=== PATIENT | male | born 1945 | race Caucasian/White ===

== ENCOUNTER 2018-12-19 18:22 | Inpatient (IN) | payer OTHER ==
[~2018-12-19] VITALS: Ht 180.3 cm; Wt 115.8 kg
--- NOTE | 2018-12-19 18:37 | NUR ---
ED PHYSICIAN AT BEDSIDE FOR PATIENT EVALUATION. MEDICAL SCREENING EXAMINATION COMPLETED BY ED PHYSICIAN DR. SANTAMARIA.
--- NOTE | 2018-12-19 18:44 | NUR ---
1ST LITER OF NS INITIATED. HR=97 SP02=94% ON RA, RR=16 DJ=497/57
[2018-12-19 19:11] LABS: CALCIUM 8.1 mg/dL (8.5-10.1); CARBON DIOXIDE 21.8 mmol/L (21-32); CHLORIDE SERUM 111 mmol/L (98-107); CREATININE SERUM 1.2 mg/dL (0.7-1.3); GLUCOSE SERUM 124 mg/dL (74-106); POTASSIUM SERUM 3.3 mmol/L (3.5-5.1); SODIUM SERUM 145 mmol/L (136-145)
[2018-12-19 19:17] LABS: ALBUMIN 3.4 g/dL (3.4-5.0); ALKALINE PHOSPHATASE 108 U/L (46-116); ALT/SGPT 30 U/L (16-63); AST/SGOT 36 U/L (15-37); BILIRUBIN TOTAL 1.4 mg/dL (0.20-1.00); TOTAL PROTEIN, SERUM 6.8 g/dL (6.4-8.2)
--- NOTE | 2018-12-19 19:19 | NUR ---
PT MEDICATED PER MD ORDER. PT VERBALIZED UNDERSTANDING OF MEDICATION PRIOR TO MEDICATION ADMINISTRATION. PT SISTER AT BEDSIDE, SPEAKING TO DOCTOR ROSALIO. PT IS AAOX4, ANSWERING ALL QUESTIONS APPROPRIATELY, REPORTING THAT HE JUST DOESN'T REMEMBER HOW HE GOT TO THE HOSPITAL OR RECALL THE SYNCOPAL EPISODE. PT IS AWAKE, SITTING UP IN GURNEY, RESP E/U, NAD NOTED. CALL LIGHT IN REACH.
[2018-12-19 19:21] LABS: BASOPHIL % 0.1 % (0-2); PLATELET COUNT 198 x10^3mcL (130-400); RED CELL DISTRIBUTION WIDTH 14.4 % (11.5-14.5)
--- NOTE | 2018-12-19 19:23 | NUR ---
DR. SANTAMARIA SPOKE WITH PT AND FAMILY ABOUT PLAN OF CARE FOR ADMISSION. PT AND FAMILY AGREED. SISTER, JEANNIE, LEFT HER PHONE NUMBER, .
--- NOTE | 2018-12-19 20:03 | NUR ---
PT MEDICATED PER MD ORDER. PT VERBALIZED UNDERSTANDING OF THE MEDICATION PRIOR TO MEDICATION ADMINISTRATION.
--- NOTE | 2018-12-19 20:36 | NUR ---
PT VOMITTED IN TOWEL. WHEN ASKED IF HE FELT NAUSEOUS, HE STATED "NO I FEEL GREAT NOW". PT SITTING IN GURNEY, AWAKE, ALERT, SPEAKING IN CLEAR SENTENCES, WATCHING TV. MADE AWARE.
--- NOTE | 2018-12-19 21:09 | NUR ---
PT MEDICATED PER MD ORDER. PT VERBALIZED UNDERSTANDING OF MEDICATIONS PRIOR TO MEDICATION ADMINISTRATION. PT AWAKE, ALERT, LAYING IN GURNEY WATCHING TV WITH CALL LIGHT IN REACH.
[2018-12-19] MEDS ORDERED: PROPRANOLOL HYD80 MG PO (21:27)
[2018-12-19] MEDS ORDERED: INDERAL LA80 MG PO ×2 (21:27→21:28)
--- NOTE | 2018-12-19 21:52 | NUR ---
PT'S SISTER JEANNIE CALLED ASKING FOR UPDATE. INFORMED JEANNIE THAT MD WAS PLANNING ON ADMITTING PT. REPORTS THAT SHE WILL CALL BACK IN THE MORNING.
--- NOTE | 2018-12-19 22:26 | NUR ---
BP IS 96/45, MAP 62. DR. SANTAMARIA AT BEDSIDE TO REEVALUATE PT. PT AWAITING CT SCAN.
--- NOTE | 2018-12-19 22:47 | NUR ---
PT RETURNED FROM CT, AWAKE, ALERT, RESP E/U, NAD NOTED. BOLUS NS RUNNING THROUGH LEFT HAND IV. CALL LIGHT IN REACH.
--- NOTE | 2018-12-19 23:19 | NUR ---
PER DOCTOR ROSALIO, PT'S VITALS ARE STABLE AND IS READY TO BE TRANSPORTED TO TELE.
--- NOTE | 2018-12-19 23:32 | NUR ---
REPORT GIVEN TO PREMA VALDIVIA.
[2018-12-19 23:51] LABS: UA SPECIFIC GRAVITY 1.015 (1.005-1.035); microscopic required? YES; urine erythrocyte NEGATIVE (NEGATIVE)
--- NOTE | 2018-12-19 23:51 | NUR ---
PT ADMITTED TO TELE FLOOR. PT ACCOMPANIED BY RN ANUPAMA AND EMT RAH. PT IS AWAKE, AAOX4, RESP E/U, NAD NOTED.
--- NOTE | 2018-12-19 23:52 | NUR ---
RECEIVED PT VIA Five [facility]ERNEY FROM E/D, ACCOMPANIED BY RN AND TRANSPORTER. PT A/A/O X 4, CALM, COOPERATIVE; NOTED SLIGHT SLUGGISHNESS TO RESPONSE W/ QUESTIONS. AMBULATORY, W/ NORMAL GAIT AND BALANCE; PT HAD SYNCOPAL EPISODE FRAMING MANAGER, THUS ON FALL RISK PRECAUTIONS. ON TELE # 16, HR 85, NSR, DENIES CHEST PAIN OR DISCOMFORT AT THIS TIME. LUNGS CTAB, CHEST RISING EVENLY, 2LNC, 94%, NO ACUTE RESPIRATORY DISTRESS NOTED. ABD SOFT, ROUND, NON-TENDER, NORMOACTIVE BOWEL SOUNDS X 4 QUADS, LAST BM 12/19/18, FORMED; HAD EPISODE OF VOMITING X 1 @ E/D. IV SITE LH 20G, CDI. ORIENTED PT TO ROOM, BED CONTROLS, CALL LIGHT SYSTEM. SIDE RAILS UP X 2, BED IN LOW POSITION. WILL ENDORSE TO PREMA SULLIVAN.
[2018-12-20 00:17] VITALS: BP 110/51
--- NOTE | 2018-12-20 01:05 | NUR ---
RECIEVED PT FROM YOLY LLOYD. PT RESTING IN BED COMFORTABLY AT THIS TIME. DENIES PAIN OR DISCOMFORT. BREATHING E/U ON 2L NC. VSS AT THIS TIME. PT REQUESTING SLEEP AID, INFORMED . BED AT LOWEST POSITION. CALL LIGHT WITHIN REACH. WILL CONTINUE TO MONITOR.
--- NOTE | 2018-12-20 05:55 | NUR ---
PT RESTING IN BED AT THIS TIME. EKG AT BEDSIDE. DENIES PAIN OR DISCOMFORT. BREATHING E/U ON 2L NC. DENIES SOB. NO SIGNS OF ACUTE DISTRESS NOTED. NO ACUTE EVENTS THIS SHIFT. BED AT LOWEST POSITION. CALL LIGHT WITHIN REACH. WILL ENDORSE TO DAY NURSE.
[2018-12-20 06:33] LABS: CALCIUM 7.5 mg/dL (8.5-10.1); CARBON DIOXIDE 21.1 mmol/L (21-32); CHLORIDE SERUM 112 mmol/L (98-107); CREATININE SERUM 1.6 mg/dL (0.7-1.3); GLUCOSE SERUM 97 mg/dL (74-106); MAGNESIUM 1.6 mg/dL (1.8-2.4); PHOSPHOROUS 3.4 mg/dL (2.5-4.9); POTASSIUM SERUM 3.8 mmol/L (3.5-5.1); SODIUM SERUM 146 mmol/L (136-145)
--- NOTE | 2018-12-20 07:27 | NUR ---
RECEIVED HAND OFF REPORT FROM NIGHT NURSE. PATIENT FOUND SITTING UP IN BED, SEIZURE PRECAUTIONS IN PLACE DUE TO SYNCOPE BEFORE ADMITTING. PATIENT A/0 X4, 2L O2 VIA NC. IV TO LEFT HAND INFUSING WELL, TELE MONITOR #[address] ON PATIENT. PATIENT HAD NO COMPLAINTS OF PAIN, AMBULATED TO RESTROOM WITHOUT ASSISTNACE, GAIT STEADY. US TECH NOW AT BEDSIDE FOR US OF NECK. ORIENTED TO CALL LIGHT SYSTEM AND INSTRUCTED TO CALL IF NEEDING ASSISTANCE
[2018-12-20 07:47] LABS: PLATELET COUNT 169 x10^3mcL (130-400)
[2018-12-20 07:49] LABS: RED CELL DISTRIBUTION WIDTH 14.7 % (11.5-14.5)
--- NOTE | 2018-12-20 08:01 | NUR ---
RECEIVED CRITICAL VALUE OF WBC 20.[address] CHILDS, NO NEW ORDERS AT THIS TIME.
[2018-12-20 08:57] VITALS: BP 99/44
--- NOTE | 2018-12-20 09:10 | NUR ---
DR LUI AND TEAM ROUNDED ON PATIENT, UPDATED PATIENT ON PLAN OF CARE. INFORMED PATIENT OF DIAGNOSIS OF NSTEMI AND NEED FOR CONSULTATIONS FROM DR ELIZONDO AND DR SAUNDERS BEFORE CONTINUING. PATIENT MEDICATIONS HELD FOR NPO, PATIENT REFUSED COLACE. CALL LIGHT WITHIN REACH
--- NOTE | 2018-12-20 10:38 | NUR ---
RECEIVED CALL FROM [facility]. PATIENT BLOOD CLUTURE TESTED POSITIVE FOR GRAM NEGATIVE BACILLI.
--- NOTE | 2018-12-20 10:55 | NUR ---
DR SAUNDERS CALLED ASKING ABOUT PATIENT. STATING THAT PATIENT SHOULD BE AT A FACILITY WITH HIGHER LEVEL OF CARE DUE TO ACUTE MA AND APPENDICITIS, PATIENT SHOULD BE IN ICU AT THE LEAST. WILL COME IN AND MAKE A NOTE ON THIS RECOMMENDATION. CALLED DR CHILDS AND INFOMRED HIM OF WHAT DR SAUNDERS SAID. DR ELIZONDO HAS NOT SEENT HIS PATIENT YET.
--- NOTE | 2018-12-20 11:33 | NUR ---
PATIENT STARTED ON HEPARIN IV INFUSION PER ORDER. DOSES VERIFIED BY EZEKIEL LLOYD AND KRIS RN. PATIENT EDUCATED ABOUT HEPARIN A BLOOD THINNER, US GALLBLADDER ORDERED, PATIENT HAS BEEN NPO SINCE LAST NIGHT. TECH COMING TO DO EXAM
[2018-12-20 11:57] VITALS: BP 114/53
--- NOTE | 2018-12-20 12:33 | NUR ---
IV IN LEFT HAND BEING USED BY HEPARIN DRIP. ATTEMPTING TO START SECOND IV LINE IN RIGHT ARM.
--- NOTE | 2018-12-20 13:27 | NUR ---
DR ELIZONDO SEEING PATIENT AT THIS TIME
[2018-12-20 13:28] LABS: BAND NEUTROPHIL 25 % (0-10); MONOCYTE 5 % (0-7); SEGMENTED NEUTROPHILS 64 % (37-75); rbc morphology (normal/abnorm) NORMAL (NORMAL)
[2018-12-20 13:29] LABS: PLATELET MORPHOLOGY PLATELETS NORMAL
--- NOTE | 2018-12-20 14:36 | NUR ---
DR SAUNDERS AT BEDSIDE WITH DR CHILDS. UPDATED PATIENT ON CONDITION, ASNSWERED QUESTIONS FROM PATIENT, AND GAVE RECOMMENDATIONS. DR SAUNDERS STATED THAT PATIENT SHOULD BE IN HOSPITAL WITH HIGHER LEVEL OF CARE FOR MEAT SOAKER. PATIENT REFUSING RECOMMENDATIONS AND CHOOSING TO STAY IN CURRENT HOSPTIAL TO TREAT APPENDICITIS. DR SAUNDERS ALSO RECOMENDED TRANSFER PATIENT TO ICU TO CONTINUE MONITORING. DR CHILDS AWARE OF RECCOMENDATIONS AND PATIENT REFUSAL TO BE TRANSFERED TO HIGHER LEVEL OF CARE
--- NOTE | 2018-12-20 16:04 | NUR ---
ACLLED REPORT TO TALAT LLOYD IN ICU. PATIENT TO BE TRANSFERRED TO BED 1 IN ICU. PHARMACY CALLED TO CONFIRM PATIENT WEIGHT FOR VANCOMYCIN DOSING
--- NOTE | 2018-12-20 16:20 | NUR ---
PT RECEIVED TO ICU 1 @ 1615. PT ABLE TO AMBULATE TO NEW BED FROM [facility] BED. VITAL SIGNS STABLE. PT AO X 4. PT ABLE TO COMMUNICATE NEEDS THEY ARISE, STATES ONLY PAIN IS REBOUND TENDERNESS WITH RLQ PALPATION. BED IN LOWEST POSITION, PT EDUCATED ON USE OF CALL LIGHT, URINAL PLACED AT BEDSIDE WITHIN REACH. PT ON 3L NC, O2 SAT 98%, HR 79, BP 134/72 (97), RR 18, SPO2 98%. WILL CONTINUE TO MONITOR PT.
[2018-12-20 16:53] VITALS: BP 134/72
[2018-12-20 19:25] VITALS: BP 114/60
--- NOTE | 2018-12-20 19:25 | NUR ---
RECEIVED REPORT AND PATIENT FROM TALAT LLOYD. SEE NURSING ASSESSMENT FOR FURTHER DETAILS. RECEIVED PT AWAKE/ALERT, ATTACHED TO FULL GAS LOAD DISPATCHER AND CONTINUOUS PULSE OXIMETRY. HOB ELEVATED 45 DEGREES PER PT COMFORT, CALL LIGHT WITHIN REACH, BED AT LOWEST SETTING. NO S/S OF ANY DISTRESS OR SOB. WILL CONT TO MONITOR.
--- NOTE | 2018-12-20 19:26 | NUR ---
RECEIVED LAB RESULT FOR PTT OF 76.8, TITRATED HEPARIN DRIP TO 1100 UNITS/HR. ORDER FOR NEXT PTT AT 2330.
[2018-12-20 23:05] VITALS: BP 121/57
--- NOTE | 2018-12-21 00:58 | NUR ---
LAB CALLED, PTT 56.2 AT THIS TIME. NO CHANGE PER HEPARIN GTT PROTOCOL. WILL ORDER NEXT PTT.
[2018-12-21 03:01] VITALS: BP 146/68
--- NOTE | 2018-12-21 03:15 | NUR ---
PT REPORTING RLQ SHARP PAIN 7/[address] NOGUEIRA MADE AWARE AT THIS TIME. PER DR. NOGUEIRA SHE WILL ORDER PAIN MEDICATION AT THIS TIME. WILL ADMINISTER PER EMAR.
--- NOTE | 2018-12-21 04:25 | NUR ---
DR. VILLARREAL MADE AWARE OF PT'S REPORTED RLQ ABD PAIN 08/27. PER DR. VILLARREAL HE WILL ORDER MEDICATION. WILL ADMINISTER PER EMAR.
[2018-12-21 05:38] LABS: BASOPHIL % 0.2 % (0-2); PLATELET COUNT 152 x10^3mcL (130-400)
[2018-12-21 05:49] LABS: CALCIUM 7.4 mg/dL (8.5-10.1); CARBON DIOXIDE 26.3 mmol/L (21-32); CHLORIDE SERUM 110 mmol/L (98-107); CREATININE SERUM 1.3 mg/dL (0.7-1.3); GLUCOSE SERUM 98 mg/dL (74-106); MAGNESIUM 1.7 mg/dL (1.8-2.4); PHOSPHOROUS 2.3 mg/dL (2.5-4.9); SODIUM SERUM 145 mmol/L (136-145)
[2018-12-21 05:52] LABS: ALBUMIN 2.6 g/dL (3.4-5.0)
--- NOTE | 2018-12-21 06:06 | NUR ---
LAB CALLED, PTT 52. NO CHANGE PER HEPARIN GTT PROTOCOL. WILL ORDER AM LAB FOR TOMORROW.
--- NOTE | 2018-12-21 07:11 | NUR ---
GAVE REPORT TO JOSÉ LUIS LLOYD. UPDATES GIVEN, QUESTIONS ANSWERED. ENDORSED CARE.
--- NOTE | 2018-12-21 07:15 | NUR ---
PATIENT IN BED, BED IS TO THE LOWEST POSITION. PATIENT IS AWAKE AND ALERT AND ABLE TO FOLLOW COMMANDS. STAFF RADIOLOGIST IN PLACE, NSR. PATIENT IS ON 2 L NASAL CANNULA. PATIENT IS BREATHING ADEQUATELY AND THERE ARE NO SIGNS OF RESPIRATORY DISTRESS. PATIENT HAS IV ACCESS NOTED TO BRENNON AND LH. N/S IS INFUSING AT 125 ML/HR AND HEPARIN IS INFUSING AT 1100 U/HR. HEELS ARE OFF LOADED AT THIS TIME WITH PILLOWS, CALL LIGHT IS WITHIN REACH. PATIENT STABLE, WILL CONTINUE TO MONITOR.
--- NOTE | 2018-12-21 07:35 | NUR ---
PATIENT STATES THAT THEY HAVE ABD PAIN, AND WOULD LIKE TO RECEIVE MEDICATION. MEDICATION GIVEN, SEE EMAR. WILL CONTINUE TO MONITOR.
[2018-12-21 07:49] VITALS: Ht 180.3 cm; Wt 115.8 kg
[2018-12-21 08:04] VITALS: BP 136/64
--- NOTE | 2018-12-21 08:35 | NUR ---
PATIENT REASSESSED AT THIS TIME. PATIENT DENIES PAIN. WILL CONTINUE TO MONITOR.
--- NOTE | 2018-12-21 10:30 | NUR ---
PATIENT IN BED RESTING COMFORATBLY, PATIENT STATES NO PAIN AT THIS TIME. WILL CONTINUE TO MONITOR.
[2018-12-21 11:23] VITALS: BP 133/65
--- NOTE | 2018-12-21 13:00 | NUR ---
PATIENT IN BED RESTING COMFORTABLY. PATIENT DENIES PAIN AT THIS TIME. WILL CONTINUE TO MONITOR.
--- NOTE | 2018-12-21 14:38 | NUR ---
HEPARIN DRIP D/C AT THIS TIME PER DR. ELIZONDO ORDERS.
[2018-12-21 15:27] VITALS: BP 142/76
--- NOTE | 2018-12-21 16:20 | NUR ---
PATIENT STATES THAT THEY HAVE ABD PAIN AT THIS TIME, AND WOULD LIKE SOMETHING FOR PAIN. WILL MEDICATE AT THIS TIME.
--- NOTE | 2018-12-21 19:04 | NUR ---
REPORT GIVEN TO PREMA INFANTE. ALL QUESTIONS ANSWERED.
[2018-12-21 19:15] VITALS: BP 145/74
--- NOTE | 2018-12-21 19:15 | NUR ---
RECEIVED PT AOX4 ABLE TO RESPOND TO COMMANDS AND MAKE NEEDS KNOWN. GCS=15. PUPILS 4MM BRISK RESPONSE TO LIGHT B/L, PERRLA. NO REPORTED ANDERSON, SPEECH CLEAR, NO FACIAL DROOP. DENIES DIZZINESS. SZ PRECAUTIONS INTACT.TRACHEA MIDLINE, NO DRAINAGE TO EENT. NO EENT COMPLAINTS. NC INTACT TO PT.LUNG SOUNDS CLEAR TO BUL, DIMINISHED BASES. CHEST RISE/FALL SYMMETRIC, E/U BREATHING. NO ACUTE RESP DISTRESS, DENIES SOB. O2 NC @ 2LPM.S1/S2 SOUNDS, CHEST WALL STABLE, NO S/S AND DENIES CHEST PAIN WHEN ASKED.SKIN COLOR CONSISTENT WITH ETHNICITY, CAP REFILL <3 SEC, PULSES MODERATE TO BUE/BLE. NS INFUSING @ 125 ML/HR. NO EDEMA NOTED.GEN WEAKNESS. NO CONTRACTURES/DEFORMITIES NOTED. PT ABLE TO TURN/REPOSITION SELF Q2H. NO JOINT SWELLING/TENDERNESS. PT NPO AT THIS TIME. NO S/S OF N/V.ACTIVE BOWEL SOUNDS X4 QUADRANTS, ABD SOFT/ROUND. NO BM AT THIS TIME. PT REPORTS DISCOMFORT TO RLQ ABD AT THIS TIME, BUT REPORTS SHARP PAIN COMES AT TIMES.PT ABLE TO URINATE FREELY USING BEDSIDE URINAL. NO COMPLAINTS. NO PENILE EDEMA OR DISCHARGE NOTED. PT VOIDED APPROX 150 ML WILFRID URINE.IV TO BRENNON, LH, PORTS PATENT, NO S/S OF INFILTRATION, DRESSING CDI. SKIN INTACT, WARM/DRY TO TOUCH. PT ON FULL SPRINKLER TENDER AND CONTINUOUS PULSE OXIMETRY. HOB ELEVATED 45 DEGREES PER PT COMFORT, CALL LIGTH WITHIN REACH, TEACHING PROVIDED. BED AT LOWSET SETTING, WILL CONT TO MONITOR.
--- NOTE | 2018-12-21 20:23 | NUR ---
PT REPORTING 6/10 RLQ ABD SHARP PAIN AT THIS TIME. WILL ADMINISTER NORCO PER EMAR.
--- NOTE | 2018-12-21 22:18 | NUR ---
PT REPORTING NAUSEA AT THIS TIME. HOB ELEVATED 45 DEGREES, PROVIDED PT WITH EMESIS BAG. ADMINISTERING ZOFRAN PER EMAR.
[2018-12-21 23:03] VITALS: BP 140/67
--- NOTE | 2018-12-22 00:29 | NUR ---
PT REPORTING 6/10 RLQ ABD SHARP PAIN AT THIS TIME. WILL ADMINISTER NORCO PER EMAR.
[2018-12-22 03:01] VITALS: BP 136/63
--- NOTE | 2018-12-22 04:15 | NUR ---
DR. CHILDS AT [facility] FOR ASSESSMENT. UPDATES PROVIDED BY NURSING. NO NEW ORDERS AT THIS TIME.
--- NOTE | 2018-12-22 04:29 | NUR ---
NORMAL SALINE GTT TITRATED TO 100 ML/HR PER MD ORDER.
--- NOTE | 2018-12-22 04:30 | NUR ---
PT REPORTING NAUSEA AT THIS TIME AND VOMITTED APPROX 100 CC OF GREENISH YELLOW EMESIS. PROVIED PT WITH EMESIS BAG, HOB ELEVATED [address] CHILDS MADE AWARE AT NURSING STATION. ZOFRAN ADMINISTERED PER EMAR.
[2018-12-22 04:40] LABS: BASOPHIL % 0.1 % (0-2); PLATELET COUNT 168 x10^3mcL (130-400)
[2018-12-22 04:49] LABS: CALCIUM 7.7 mg/dL (8.5-10.1); CARBON DIOXIDE 26.1 mmol/L (21-32); CHLORIDE SERUM 109 mmol/L (98-107); GLUCOSE SERUM 96 mg/dL (74-106); MAGNESIUM 2.3 mg/dL (1.8-2.4); POTASSIUM SERUM 3.7 mmol/L (3.5-5.1); SODIUM SERUM 143 mmol/L (136-145)
[2018-12-22 04:50] LABS: CHOLESTEROL/HDL RATIO 5.2
[2018-12-22 05:05] LABS: RED CELL DISTRIBUTION WIDTH 15.2 % (11.5-14.5)
--- NOTE | 2018-12-22 07:10 | NUR ---
GAVE REPORT TO PREMA BARCLAY. UPDATES GIVEN, QUESTIONS ANSWERED. ENDORSED CARE.
[2018-12-22 07:35] VITALS: BP 139/65
--- NOTE | 2018-12-22 07:35 | NUR ---
PATIENT AWAKE AND ORIENTED TO PERSON, PLACE AND TIME. PATIENT DENIES SHORTNESS OF BREATH, OR NAUSEA/VOMITING AT THIS TIME. PATIENT STATES HAVING SLIGHTLY DULL PAIN TO RIGHT LOWER QUADRANT AND TOLERATES THE PAIN AT THIS TIME. CONTINUE TO MONITOR AND MEDICATE FOR PAIN PRN. PATIENT IS ON OXYGEN 2L/MIN VIA NASAL CANNULA. IVF NS VIA IV SITE TO RIGHT UPPER ARM. ANOTHER IV SITE TO LEFT HAND. TELE # 1 READS SINUS RHYTHMS AT THIS TIME. SCDS TO BLE. CALL LIGHT WITHIN REACH. SIDE RAILS UP X3. BED IS AT LOWEST POSITION. ALARM IS ON.
--- NOTE | 2018-12-22 09:15 | NUR ---
PATIENT C/O NAUSEA; ZOFRAN 4MG IVP WAS MEDICATED TO THE PATIENT.
--- NOTE | 2018-12-22 09:15 | NUR ---
ANITA THAKKAR TEST NURSE IS AT BEDSIDE TO EXPLAIN THE PROCEDURE OF STRESS TEST TO THE PATIENT AND WILL MEDICATE THE MED FOR LEXISCAN STRESS TEST.
--- NOTE | 2018-12-22 09:35 | NUR ---
DR. CORDOVA AND THE TEAM ARE MAKING ROUND TO SEE THE PATIENT. THE CARE PLAN IS DISCUSSED WITH THE PATIENT AT THIS TIME. THE PATIENT VERBALIZES AGREEMENT WITH THE PLAN.
--- NOTE | 2018-12-22 10:02 | NUR ---
THE PATIENT WAS PICKED UP TO RAD DEPT VIA WHEELCHAIR FOR STRESS TEST BY BIJAN. LEXIE ICU-RN ACCOMPANIED THE PATIENT.
--- NOTE | 2018-12-22 10:10 | NUR ---
PATIENT OFF TO RADIOLOGY FOR LEXISCAN. PATIENT REMOVED FROM ICU CHILDREN'S COUNSELOR AND PLACED ON PORTABLE CARIDAC MONITOR. PATIENT AMBULATED TO WHEELCHAIR WITHOUT INCIDENT. PATIENT TRANSFERRED TO RADIOLOGY ACCOMPANIED BY RAD. NICOLAS MCMAHAN GENEVA RN AND DAVID LLOYD.
--- NOTE | 2018-12-22 12:16 | NUR ---
THE PATIENT CAME BACK TO THE ROOM S/P LEXISCAN STRESS TEST. PATIENT TRANSFERRED HIMSELF FROM WHEELCHAIR TO BED WITH NO ASSISTANCE. THEN, PATIENT HOOKED UP TO FULL MONITOR AGAIN. WILL IMPLEMENT ASSESSMENT ON THE PATIENT.
[2018-12-22 12:45] VITALS: BP 161/82
[2018-12-22 15:55] VITALS: BP 135/66
--- NOTE | 2018-12-22 16:02 | NUR ---
PATIENT WAS ADMINISTERED ZOFRAN 4MG IVP FOR COMPLAINT OF NAUSEA.
--- NOTE | 2018-12-22 17:30 | NUR ---
DR. CHILDS WAS PAGED GATE TO NOTIFY OF THE PHOS LEVEL 2.0. AWAITING FOR RESPONSE.
--- NOTE | 2018-12-22 17:54 | NUR ---
REPORT GIVEN TO PREMA HOLT FROM [facility]. CONCERNS WERE ADDRESSED. PATIENT WILL BE TRANSFERRED TO ROOM 254B.
--- NOTE | 2018-12-22 18:09 | NUR ---
PATIENT IS TRANSFERRED TO ROOM 254B IN [facility] UNIT VIA WHEELCHAIR IN STABLE CONDITION. ALL BELONGINGS WERE SENT TO THE ROOM WITH THE PATIENT UPON TRANSFER.
--- NOTE | 2018-12-22 18:23 | NUR ---
RECEIVED PT FROM ICU, PT IS A/O X4, VERBAL RESPONSIVE, LUNG SOUND CLEAR BILATERAL, NO COUGH, NO SOB, PT IS ON 2L/MIN O2 VIA NC. PO2 94%, PT IS ON TELE 2, NSR, DENY ANY CHEST PAIN OR DISCOMFORT, BOWEL SOUND PRESENT ALL 4 QUADRANTS, NO DISTENTION, NO TENDER. PEDAL PULSE PRESENT BOTH FEET, +1 EDEMA BLE. IV AT RIGHT UPPER ARM AND LEFT HAND, PT CONTINUE VANCO IV FROM ICU. DENY ANY PAIN OR DISCOMFORT AT THIS TIME, ALL ADLS ASSIST, ALL NEED MET, CALL LIGHT IN REACH, WILL CONTINUE TO MONITOR. ENRORSE [facility] NURSE JONATHON LLOYD.
--- NOTE | 2018-12-22 18:53 | NUR ---
REPORT TAKEN FROM DENY IN ICU, PT TRANSFERED, OBSERVED TO BE IN NAD, RESTING IN BED, ON 2L NC, DENIED SOB OR CP, VANCO INFUSING TO RIGHT UPPER ARM WELL, TELE NUMBER [address], NSR AT THIS TIME, WILL REPORT TO LAUNDRY MANAGER NURSE AND ENDORSE CARE.
--- NOTE | 2018-12-22 19:16 | NUR ---
REPORT GIVEN TO JOB PRINTER NURSE AT THE BEDSIDE, CARE ENDORSED
--- NOTE | 2018-12-22 19:30 | NUR ---
RECIEVED PT RESTING IN BED WITH NO ACUTE DISTRESS, PT REFUSED TO US 02 VIA NC, PT TOLERATING RA WITH NO SOB, ASSESSMENT PERFORMED AT THIS TIME, PT A/OX4 NO COMPLAINTS OF ANDERSON OR DIZZINESS AT THIS TIME, IV TO THE RAC, AND LH, IV INFUSING 100 ML PER HOUR IN THE LFA, PT DEINIES CHES TPAIN OR SOB, ALL NEEDS ATTENDED TO, SAFETY PRECAUTIONS IN PLACE, WILL COTNIUE TO MNITOR
[2018-12-22 21:26] VITALS: BP 146/72
--- NOTE | 2018-12-22 22:20 | NUR ---
PT RESTING IN BED WATCHING TV, NO COMPLAINTS OF PAIN OR SOB AT THIS TIME, ALL NEEDS ATTENDED TO, SAFETY PRECAUTIONS IN PLACE, WILL COTNINUE TO MONITOR
--- NOTE | 2018-12-23 00:10 | NUR ---
PT RESTING IN BED WITH NO ACUTE DISTRESS NOTED AT THIS TIME, PT EASILY AROUSABLE TO VERBAL STIMULI, PT DENIES PAIN OR SOB AT THIS TIME, ALL NEEDS ATTENDED TO , SAFETY PRECAUTIONS IN PLACE, WILL CONTINUE TO MONITOR
--- NOTE | 2018-12-23 02:27 | NUR ---
PT REPORTS MILD ANDERSON 06/27, ADMINISTERED TYLENOL PER PRN ORDER
--- NOTE | 2018-12-23 05:15 | NUR ---
PT RESTED THROUGH THE NIGHT WITH NO ACUTE DISTRESS OR RESPIRATORY ISSUES ON RA, PT DENIES PAIN OR SOB THROUGH THE NIHGT, PT AMBULATED TO THE RESTROOM ONCE WITH STEADY GAIT AND UNASSISTED, SAFETY PRECAUTIONS WERE MAINTAINED THROUGH THE NIGHT, ALL NEEDS ATTENDED TO WILL CONTINUE TO MONITOR AND ENDORSE CARE
[2018-12-23 05:47] VITALS: BP 126/70
[2018-12-23 06:22] LABS: PLATELET COUNT 213 x10^3mcL (130-400)
[2018-12-23 06:29] LABS: CALCIUM 8.2 mg/dL (8.5-10.1); CARBON DIOXIDE 29.3 mmol/L (21-32); CHLORIDE SERUM 110 mmol/L (98-107); GLUCOSE SERUM 105 mg/dL (74-106); MAGNESIUM 1.8 mg/dL (1.8-2.4); PHOSPHOROUS 1.3 mg/dL (2.5-4.9); POTASSIUM SERUM 3.7 mmol/L (3.5-5.1); SODIUM SERUM 144 mmol/L (136-145)
[2018-12-23 06:37] LABS: RED CELL DISTRIBUTION WIDTH 15.1 % (11.5-14.5)
[2018-12-23 07:24] VITALS: BP 140/69
--- NOTE | 2018-12-23 08:20 | NUR ---
AT 0710 - RECEIVED PATIENT FROM NIGHT NURSE. AWAKE, ALERT AND ORIENTED X 4 MONITOR SHOWING SINUS RHYTHM; RATE 60'S. NO C/O CHEST PAIN. IV INFUSING NS AT 100ML/HR. AT 0800 - C/O HEADACHE AND NAUSEA. MEDICATED WITH ZOFRAN AND TYLANOL PER EMAR. PATIENT TAKING CLEAR LIQUIDS PO
[2018-12-23 09:47] LABS: BAND NEUTROPHIL 3 % (0-10); BASOPHIL 0 % (0-2); MONOCYTE 6 % (0-7); SEGMENTED NEUTROPHILS 77 % (37-75)
[2018-12-23 09:48] LABS: PLATELET MORPHOLOGY GIANT PLATELET SEEN; rbc morphology (normal/abnorm) ABNORMAL (NORMAL); tear drop cell (dacryocyte) 1+
--- NOTE | 2018-12-23 09:55 | NUR ---
PATIENT RESTING QUIETLY AFTER RECEIVING TYLANOL AND ZOFRAN. NO FURTHER C/O HEADACHE OR NAUSEA.
--- NOTE | 2018-12-23 10:24 | NUR ---
SEEN BY DR CORDOVA DURING MORNING ROUNDS. MEDICAL TEAM DOCTORS AND CHARGE NURSE ALSO PRESENT. DR CORDOVA SPOKE WITH PATIENT ABOUT PLAN OF TREATMENT. PATIENT VOICED PREFERENCE FOR CONTINUATION OF IV ANTIBIOTICS FOR 4 WEEKS INSTEAD OF HAVING APPENDECTOMY.
[2018-12-23 11:37] VITALS: BP 133/74
--- NOTE | 2018-12-23 12:14 | NUR ---
COMMENCED ON K-PHOS PO FOR PHOSPHORUS LEVEL OF 1.3
--- NOTE | 2018-12-23 15:21 | NUR ---
SEEN BY DR ELIZONDO. CONTINUE WITH CURRENT CARDIAC TREATMENTS.
[2018-12-23 17:02] VITALS: BP 152/79
--- NOTE | 2018-12-23 18:35 | NUR ---
AWAKE, ALERT AND ORIENTED. VSS. AFEBRILE. IV INFUSING NS AT 100ML/HR. VOIDING IN URINAL. NO C/O PAIN. NAUSEA UNDER CONTROL WITH ZOFRAN BUT APPETITE REMAINS POOR. PATIENT ON CLEAR LIQUID DIET BUT TAKING ONLY SMALL AMOUNTS PO FLUIDS. WILL ENDORSE CARE TO NIGHT NURSE.
--- NOTE | 2018-12-23 19:30 | NUR ---
RECIEVED PATIENT AT START OF SHIFT A/O X4. ON TELE 2 NSR 78. NO SOB ON RA. DENEIS PAIN. IV TO BRENNON AND LWRIST INFUSING WITHOUT INFILTRATION OR ERYTHEMA. AMBULATORY. CALL LIGHT AND BEDSIDE TABLE WITHIN REACH.
[2018-12-23 20:38] VITALS: BP 152/52
--- NOTE | 2018-12-23 21:24 | NUR ---
PATIENT GIVEN TYLENOL PER EMAR FOR COMPLAINT OF 2/10 HEAD ACHE.
--- NOTE | 2018-12-24 00:40 | NUR ---
PATIENT IS AWAKE IN BED WATCHING TV. NO SIGNS OF DISTRESS. DENIES PAIN. NO SOB ON RA. IV INFUSING TO BRENNON WITHOUT ERYTHEMA OR INFILTRATION. CALL LIGHT AND BEDSIDE TABLE WITHIN REACH.
--- NOTE | 2018-12-24 04:56 | NUR ---
PATIENT GIVEN MORPHINE PER EMAR FOR 6/10 PAIN TO HIS ABDOMEN.
[2018-12-24 05:32] VITALS: BP 154/91
[2018-12-24 06:25] LABS: PLATELET COUNT 249 x10^3mcL (130-400)
--- NOTE | 2018-12-24 06:39 | NUR ---
PATIENT REPORTS RELIEF OF PAIN, NOW 05/30. IV TO LH WAS DISLODGED. CATHETER INTACT. IV TO BRENNON STILL INFUSING WELL. NO FURTHER SIGNIFICANT EVENTS. BED LOCKED AND IN LOWEST POSIITON. CALL LIGHT AND BEDSDIE TABLE WITHIN REACH.
[2018-12-24 06:41] LABS: CALCIUM 8.2 mg/dL (8.5-10.1); CARBON DIOXIDE 28.3 mmol/L (21-32); CHLORIDE SERUM 109 mmol/L (98-107); GLUCOSE SERUM 99 mg/dL (74-106); MAGNESIUM 1.8 mg/dL (1.8-2.4); PHOSPHOROUS 1.4 mg/dL (2.5-4.9); POTASSIUM SERUM 3.9 mmol/L (3.5-5.1); SODIUM SERUM 145 mmol/L (136-145)
[2018-12-24 06:51] LABS: RED CELL DISTRIBUTION WIDTH 15.2 % (11.5-14.5)
--- NOTE | 2018-12-24 07:10 | NUR ---
RECEIVED PT FROM NIGHT NURSE. PT IS LAYING DOWN IN BED WITH HOB UP. PT LOOKS TO BE IN NO ACUTE DISTRESS AT THIS TIME AND STATES PAIN IS TOLERABLE AT 2/10 PAIN TO THE ABD. RESPIRATIONS EVEN AND UNLABORED ON ROOM AIR. IV SITE PATENT WITH NO SIGNS OF ERYTHEMA OR SWELLING. BED IN LOWEST POSITION, CALL LIGHT WITHIN REACH. WILL CONTINUE TO MONITOR.
[2018-12-24 07:38] LABS: BAND NEUTROPHIL 0 % (0-10); BASOPHIL 0 % (0-2); MONOCYTE 6 % (0-7); SEGMENTED NEUTROPHILS 84 % (37-75)
[2018-12-24 07:39] LABS: PLATELET MORPHOLOGY PLATELETS DECREASED
[2018-12-24 07:41] LABS: rbc morphology (normal/abnorm) ABNORMAL (NORMAL)
[2018-12-24 08:16] VITALS: BP 158/84
[2018-12-24 11:44] VITALS: BP 147/76
--- NOTE | 2018-12-24 11:50 | NUR ---
PT TRANSFERED TO MED SURG. REMOVED TELE MONITOR AND ORDERED AND RETURNED TO TELE STATION.
--- NOTE | 2018-12-24 14:36 | NUR ---
PT AMBULATING TO BATHROOM, PT STATES FEELS A LITTLE WEAK BUT IS ABLE TO AMBULATE WITHOUT ASSISTANCE. PT LOOKS TO BE IN NO ACUTE DISTRESS AT THIS TIME. WILL CONTINUE TO MONITOR.
--- NOTE | 2018-12-24 14:46 | NUR ---
Initial Nutrition Assessment Dx: NSTEMI PMHx: HTN and HLD PSHx: None Labs: BUN 19H, Ca 8.2L, P 1.4L, Trop + x 5, WBC 13H Meds: Colace, Flagyl, Lipitor, Lopressor, Morphine, Neutra-Phos, Oscal, NSIV, Vancocin, Zofran, Zosyn Diet: CLD PO Intake: 50-40% x 2 meals x 1 day Ht: 180 cm Wt: 116 kg BMI: 35.6 (Obesity Class I) IBW: 148% IBW: 172# AJBW: 87.6 kg UBW: 250-260# Age: 73 y/o elderly male Food Allergies: NKFA Skin: Intact Brad: 20 Edema: +1 pitting to BUE GI: Last BM: x 1 (12/23) Per H and P documentations, pt. admitted with RLQ pain x 1 prior to admission. Continues to endorse abdominal pain with intermittent nausea at this time with fair to poor appetite. No reports of recent weight changes x 1 month prior to admission. Problem with: N/V/D/C: +nausea, +abd pain Problems with: Chewing: N Swallowing: N Current appetite: fair to poor Recent wt change: None %wt change: N/A Vitamin/Supplement use: None Special diet at home: Regular Physical activity: None at this time d/t acute illness Education: Diet education not appropriate at this time, not feeling well during visit. Estimated Nutritional Needs Based on adjusted body weight 87.6 kg Energy: 7094-9938 kcal/d (25-27 kcal/kg-geriatric needs) Protein: 87-105 g/d (1.0-1.2 g/kg)-geriatric needs Fluid: 0154-8809 ml/d (1 ml/kcal) or per doctor Nutrition Diagnosis 1. Inadequate PO intake r/t GI dysfunction and poor appetite AEB pt. reports of continued nausea and current intake meeting <75% estimated needs. Intervention 1. Continue CLD as ordered and as tolerated. When medically able, consider advancing diet to Cardiac for dietary/chronic disease management. 2. If PO intake remains <75% by following assessment, consider adding Ensure Enlive BID for supplementation. Monitor/Evaluate Goal: PO intake at least 75% of estimated needs Monitor: PO intake, Labs, GI function, skin F/U in 3-5 days as moderate risk (12/27-12/29)
[2018-12-24 15:53] VITALS: BP 168/66
--- NOTE | 2018-12-24 17:00 | NUR ---
RECHECKED PT BLOOD PRESSURE AND IS AT 167/87. NO PRN BLOOD PRESSURE MEDICATION AT THIS TIME. PT LOOKS TO BE IN NO ACUTE DISTRESS AT THIS TIME AND IS SITTING UP IN BED. DR. CHILDS NOTIFIED. WILL CONTINUE TO MONITOR.
--- NOTE | 2018-12-24 17:52 | NUR ---
PICC LINE NURSE AT BEDSIDE, PT IS AGREEABLE WITH THE PROCEDURE AND HAS NO CONCERNS ABOUT THE PROCEDURE AT THIS TIME. TIME-OUT PERFORMED W/ PICC LINE NURSE. VOCATIONAL ED INSTRUCTOR AT BEDSIDE. PRIMARY NURSE CANDACE MADE AWARE OF THE ABOVE.
--- NOTE | 2018-12-24 18:30 | NUR ---
PT REQUESTING TO HAVE PAIN MEDICATION THAT IS STRONGER THAN TYLENOL BUT NOT STRONG MORPHINE, IT REQUESTING NORCO. PT STATES PAIN AT THIS TIME IS 4/[address] CHILDS. PT STATES WOULD LIKE TO WAIT UNTIL NORCO IS INPUTTED TO MANAGE PAIN. WILL CONTINUE TO MONITOR.
--- NOTE | 2018-12-24 18:37 | NUR ---
PICC LINE NURSE COMPLETED PICC LINE TO LEFT UPPER ARM, CHEST XRAY COMPLETED TO VERIFY PLACEMENT. PICC LINE NURSE STATED OKAY TO USE. WILL NOTIFY ATTENDING
--- NOTE | 2018-12-24 18:44 | NUR ---
PT IS SITTING UP IN BED. PT LOOKS TO BE IN NO ACUTE DISTRESS AND STATES PAIN IS 4/10 TO RUQ OF ABD, PT IS REQUESTING TO HAVE NORCO. RESPRIATIONS EVEN AND UNLABORED ON ROOM AIR. IV SITE TO RIGHT UPPER ARM IS PATENT WITH NO SIGNS OF ERYTHEMA OR SWELLING, RIGHT LOWER ARM HAS SWELLING, IV INFUSING WELL, INFORMED PT TO ELEVATE ARM TO HELP WITH SWELLING. PICC LINE STARTED TO LEFT UPPER ARM AND LOOKS PATENT AND IS H/L. BED IN LOWEST POSITION, CALL LIGHT WITHIN REACH. WILL ENDORSE TO ONCOMING SHIFT.
--- NOTE | 2018-12-24 20:00 | NUR ---
RECEIVED PT IN BED, RESTING QUIETLY. ALERT AND ORIENTED. ABLE TO VERBALIZE NEEDS. RESP. EVEN AND UNLABORED.LUNG SOUNDS CLEAR BILAT. ON ROOM AIR, NO ACUTE DISTRESS NOTED. NO TELE. DENIES CHEST PAIN OR ANY DISCOMFORT AT THIS TIME. IVF INTACT AND INFUSING VIA BR[place] ,SITE CLEAR, PICC LINE TO [facility], INTACT. AWAITING ORDER TO USE SITE. BUE EDEMATOUS, ELEVATED ON PILLOWS. ASSISTED WITH HS CARE. CALL LIGHT WITHIN REACH. WILL CONTINUE TO MONITOR.
[2018-12-24 20:15] VITALS: BP 163/78
--- NOTE | 2018-12-24 22:15 | NUR ---
COMPLAINING OF ANXIETY. XANAX GIVEN ORDERED. ORDER RECEIVED FROM DR NOGUEIRA TO USE HARLEY PICC LINE, IVF INFUSING AT THIS TIME. WILL CONTINUE TO MONITOR.
--- NOTE | 2018-12-25 00:12 | NUR ---
COMPLAINED OF LOWER ABD. PAIN, 5/10, MEDICATED WITH MORPHINE SULFATE ORDERED. WILL CONTINUE TO MONITOR.
--- NOTE | 2018-12-25 01:54 | NUR ---
RESTING QUIETLY WITH EYES CLOSED, APPEARS ASLEEP, EASILY AROUSABLE. RESP. EVEN AND UNLABORED. NO ACUTE DISTRESS NOTED. CALL LIGHT WITHIN REACH. WILL CONTINUE TO MONITOR.
[2018-12-25 05:22] VITALS: BP 152/80
--- NOTE | 2018-12-25 06:30 | NUR ---
DUE MEDS GIVEN ORDERED, HOLLI. WELL. NO COMPLAINTS NOTED AT THIS TIME. AFEBRILE AND VITAL SIGNS STABLE. RESP. EVEN AND UNLABORED. NO ACUTE DISTRESS NOTED. IVF INTACT AND INFUSING VIA HARLEY PICC LINE. SITE DRESSING INTACT AND CLEAN. KEPT COMFORTABLE.VOIDING FREELY. CALL LIGHT WITHIN REACH . WILL CONTINUE TO MONITOR.
[2018-12-25 07:24] LABS: PLATELET COUNT 269 x10^3mcL (130-400)
[2018-12-25 07:36] LABS: RED CELL DISTRIBUTION WIDTH 15.1 % (11.5-14.5)
--- NOTE | 2018-12-25 07:42 | NUR ---
RECEIVED PATIENT FROM PREMA MARIANO. PATIENT SEATED IN BED AT THIS TIME, STATES HE HAS MODERATE PAIN BUT IS WAITING FOR PRN NORCO. PATIENT CURRENTLY DOES NOT HAVE PRN NORCO, WILL DISCUSS WITH RESIDENTS DURING ROUNDS. PATIENT AGREES TO PLAN OF CARE FOR TODAY, MEDICATIONS AND ANTIBIOTICS. CALL LIGHT IN REACH AT THIS TIME.
[2018-12-25 07:43] LABS: CARBON DIOXIDE 28.1 mmol/L (21-32); CHLORIDE SERUM 106 mmol/L (98-107); GLUCOSE SERUM 116 mg/dL (74-106); MAGNESIUM 1.7 mg/dL (1.8-2.4); PHOSPHOROUS 2.2 mg/dL (2.5-4.9); SODIUM SERUM 145 mmol/L (136-145)
[2018-12-25 07:45] VITALS: BP 167/90
[2018-12-25 07:46] LABS: POTASSIUM SERUM 2.8 mmol/L (3.5-5.1)
--- NOTE | 2018-12-25 07:52 | NUR ---
NOTIFIED BY LAB THAT PATIENT SERUM POTASSIUM IS 2.8, CALLED AND SPOKE W DR CHILDS AND MADE AWARE.
--- NOTE | 2018-12-25 10:04 | NUR ---
DR CORDOVA AND DR CHILDS IN TO SPEAK W PATIENT. PATIENT LIKELY TO BE TRANSFERRED TODAY TO SNF AND WILL NEED CONTINUING IV ANTIBIOTICS. PATIENT SEEMS CONFUSED ABOUT PLAN BUT NO QUESTIONS AT THIS TIME. CALL LIGHT IN REACH.
[2018-12-25 10:16] LABS: BAND NEUTROPHIL 4 % (0-10); BASOPHIL 0 % (0-2); MONOCYTE 7 % (0-7); SEGMENTED NEUTROPHILS 77 % (37-75); rbc morphology (normal/abnorm) ABNORMAL (NORMAL)
[2018-12-25 10:27] LABS: tear drop cell (dacryocyte) 1+
--- NOTE | 2018-12-25 12:09 | NUR ---
PATIENT NOW UP TO CHAIR ASKING ABOUT DISCHARGE. INFORMED PATIENT THAT DC PAPERWORK IS NOT YET COMPLETE AND REMINDED PATIENT THAT HIS FAMILY WAS TO COME AND TAKE HIM TO [facility]. TRANSFER PAPERWORK SIGNED, WILL AWAIT FAMILY TO ARRIVE.
[2018-12-25 12:10] VITALS: BP 150/89
[2018-12-25 13:05] VITALS: BP 150/89
[2018-12-25] MEDS ORDERED: MEROPENEM1 GM IV (14:35)
[2018-12-25] MEDS ORDERED: LIPI10 PO (14:37)
[2018-12-25] MEDS ORDERED: METOPROLOL TART50 MG PO (14:41)
--- NOTE | 2018-12-25 15:25 | NUR ---
DISCHARGE INSTRUCTIONS GIVEN TO PT INCLUDING ANTIBIOTIC TREATMENT AT [facility], PICC LINE CARE AND NEW MEDICATIONS. PT VERBALIZE UNDERSTANDING. TRANSFER PACKET GIVEN TO THE PT, WAITING FOR PT'S FAMILY TO PICK HIM UP AND BE TRANSFERRED TO [facility]. NOTED PT HAS ECCHYMOSIS ON THE RUE AND SKIN TEAR (2CM X 0.5CM) ON THE RIGHT ANTECUBITAL AREA. IV SITE ON THE RUE REMOVED, CATHETER INTACT. NO BLEEDING NOTED.
--- NOTE | 2018-12-25 15:56 | NUR ---
REPORT GIVEN TO RN AT [facility]. TRANSFER PAPERWORK AND PACKET GIVEN TO PATIENT, SIGNATURES OBTAINED. PATIENT CALLED DAUGHTER FOR CANCER GENETIC COUNSELOR TIME, NO ANSWER VM LEFT. WILL CONTINUE TO AWAIT CANCER GENETIC COUNSELOR FROM FAMILY. CALL LIGHT IN REACH, PATIENT UP TO CHAIR NO COMPLAINTS AT THIS TIME.
--- NOTE | 2018-12-25 16:36 | NUR ---
PATIENT SISTER JEANNIE HAS ARRIVED TO [facility]. PATIENT WITH BELONGINGS AND TRANSFER PAPERWORK, ESCORTED VIA WHEELCHAIR Beena ORANTES. NO TELEMETRY BOX PRESENT, PICC LINE ACCESS REMAINS FOR IV ANTIBIOTICS AT [facility] PER DR CHILDS. PATIENT AND FAMILY AWARE TO GO TO [facility] AFTER STOPPING BY AT HOME.
== END 2018-12-25 16:33 | DRG 871 ==
LOC: ED 18:22 → IC 22:02 → DU 22:02 → IC 12-20 16:13 → DU 12-22 17:09 → IC 12-22 17:11 → DU 12-22 18:12 → MU 12-24 11:35
PROVIDERS: Internal Medicine; Internal Medicine Cardiovascular Disease; Student in an Organized Health Care Education/Training Program; ADMIT Internal Medicine
DX: A41.9 Sepsis, unspecified organism (principal); I21.A1 Myocardial infarction type 2; N17.0 Acute kidney failure with tubular necrosis; G93.41 Metabolic encephalopathy; N39.0 Urinary tract infection, site not specified; K35.80 Unspecified acute appendicitis; E87.6 Hypokalemia; E83.51 Hypocalcemia; E83.42 Hypomagnesemia; I10 Essential (primary) hypertension; E83.39 Other disorders of phosphorus metabolism; E78.5 Hyperlipidemia, unspecified; Z68.33 Body mass index [BMI] 33.0-33.9, adult
CPT/HCPCS: A9500; C1751; G0378; G0480; J0696; J1644; J2270; J2405; J2543; J2785; J3370; J3475; J3480; J3490; J7030; J7050; J7060; Q0092; Q9967